=== PATIENT | male | born 1980 | race Caucasian/White ===

== ENCOUNTER 2024-12-26 08:02 | Emergency (ER) | payer OTHER ==
[~2024-12-26] VITALS: Ht 177.8 cm; Wt 86.4 kg
[~2024-12-26 08:02] MED LIST: CEPHALEXIN500 M2 PO
[2024-12-26 08:45] VITALS: BP 152/103
[2024-12-26] MEDS ORDERED: NORCO 325 MG-51 TA1 PO (08:52)
== END 2024-12-26 08:49 | disposition home or self-care (01) ==
LOC: ED 08:02
DX: S92.411A Displaced fracture of proximal phalanx of right great toe, initial encounter for closed fracture (principal); X50.1XXA Overexertion from prolonged static or awkward postures, initial encounter; Y93.02 Activity, running
CPT/HCPCS: 15970; L4386